=== PATIENT | female | born 1995 | race Caucasian/White ===

== ENCOUNTER → 2017-06-05 | Outpatient (REF) | payer OTHER | LOC: M LAB REF 16:14 | DX: J06.9 Acute upper respiratory infection, unspecified (principal); J02.9 Acute pharyngitis, unspecified ==

== ENCOUNTER → 2021-01-30 | Outpatient (REF) | payer OTHER | LOC: M LAB REF 15:47 | PROVIDERS: ATTEND Physician Assistant | DX: J02.9 Acute pharyngitis, unspecified (principal) ==

== ENCOUNTER → 2021-02-02 | Outpatient (CLI) | payer OTHER ==
[2021-02-02 16:05] LABS: HEMATOCRIT 43.4 % (36.0-47.0); HEMOGLOBIN 14.3 g/dl (12.0-15.5); MEAN CORPUSCULAR HEMOGLOBIN 31.6 pg (27.0-33.0); MEAN CORPUSCULAR HGB CONC 32.9 g/dl (32.0-36.5); PLATELET COUNT, AUTOMATED 112 10^3/uL (150-450); RED BLOOD COUNT 4.52 10^6/uL (4.00-5.40); WHITE BLOOD COUNT 9.6 10^3/uL (4.0-10.0)
[2021-02-02 16:32] LABS: ALT/SGPT 170 U/L (12-78); BILIRUBIN,TOTAL 0.7 MG/DL (0.2-1.0); BLOOD UREA NITROGEN 4 MG/DL (7-18); CALCIUM LEVEL 8.6 MG/DL (8.5-10.1); CARBON DIOXIDE LEVEL 30 MEQ/L (21-32); CHLORIDE LEVEL 106 MEQ/L (98-107); CREATININE FOR GFR 0.57 MG/DL (0.55-1.30); GLOMERULAR FILTRATION RATE > 60.0 (>60); GLUCOSE, FASTING 127 MG/DL (70-100); SODIUM LEVEL 139 MEQ/L (136-145); TOTAL PROTEIN 7.1 GM/DL (6.4-8.2)
[2021-02-02 17:44] LABS: ATYPICAL LYMPH 38 % (0-5); LYMPHOCYTES 45 % (16-44); MONOCYTES 3 % (0-5); NEUTROPHILS 7 % (28-66)
[2021-02-02 17:45] LABS: PLATELET ESTIMATE DECREASED (NORMAL)
[2021-02-05 14:12] LABS: EBV AB TO NUCLEAR ANTIGEN <18.0 U/mL (0.0-17.9); EBV VIRAL CAPSID AG IgG 26.3 U/mL (0.0-17.9); EBV VIRAL CAPSID AG IgM >160.0 U/mL (0.0-35.9)
== END ==
LOC: M WUC 12:14
PROVIDERS: ATTEND Physician Assistant
DX: J03.90 Acute tonsillitis, unspecified (principal)